=== PATIENT | female | born 1995 | race African-American/Black ===

== ENCOUNTER 2016-12-31 15:59 | Emergency (ER) | payer SELFPAY ==
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
== END 2016-12-31 18:23 | disposition left against medical advice (07) ==
LOC: EMR 16:19
DX: Z04.41 Encounter for examination and observation following alleged adult rape (principal)
CPT/HCPCS: 99283